=== PATIENT | female | born 1960 | race Caucasian/White ===

== ENCOUNTER 2017-04-25 20:54 | Emergency (ER) | payer OTHER ==
[~2017-04-25] VITALS: Ht 157.5 cm; Wt 68.0 kg
[2017-04-25] MEDS ORDERED: IBUPROFEN 400 MG TABLET PO ONE (21:30)
[2017-04-25] MEDS ORDERED: ONDANSETRON ODT 4 MG TAB.RAPDIS SL ONE (21:30)
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
[2017-04-25] MEDS ORDERED: ONDANSETRON ODT 4 MG TAB.RAPDIS ONE (21:43)
[2017-04-25] MEDS ORDERED: IBUPROFEN 400 MG TABLET ONE (21:43)
[2017-04-25] MEDS ORDERED: IV NORMAL SALINE 1000 ML BAG IV ONE (22:45)
--- NOTE | 2017-04-25 23:24 | NUR ---
removed IV 20g left AC, intact, site okay, bandaged. Pt had pain at site, restarted IV 20g right AC.
[2017-04-25 23:57] LABS: BASOPHILS # (AUTO) 0.1 K/uL (0.0-8.0); BASOPHILS % (AUTO) 0.6 % (0.0-2.0); EOSINOPHILS # (AUTO) 0.1 K/uL (0.0-0.7); EOSINOPHILS % (AUTO) 1.1 % (0.0-7.0); HEMATOCRIT 42.4 % (37-47); HEMOGLOBIN 14.7 G/DL (12.0-16.0); LYMPHOCYTES % (AUTO) 21.6 % (20.5-51.5); MEAN CORPUSCULAR HEMOGLOBIN 28.9 UUG (27.0-31.0); MEAN CORPUSCULAR HGB CONC 35 g/dL (32.0-37.0); MEAN CORPUSCULAR VOLUME 83.5 FL (81.0-99.0); MONOCYTES # (AUTO) 0.6 K/UL (0.1-1.30); MONOCYTES % (AUTO) 6.3 % (0.0-11.0); NEUTROPHILS # (AUTO) 6.5 K/UL (1.8-8.9); NEUTROPHILS % (AUTO) 70.4 % (38.5-71.5); PLATELET COUNT (AUTO) 338 K/UL (150-450); RED BLOOD CELL COUNT(AUTO) 5.08 MIL/UL (4.2-5.4); WHITE BLOOD COUNT (AUTO) 9.3 K/UL (4.0-11.2)
[2017-04-26] LABS: AMYLASE 45 U/L (25-115); LIPASE 206 U/L (73-393)
[2017-04-26 00:05] LABS: BILIRUBIN,DIRECT 0.1 mg/dL (0.0-0.2); BILIRUBIN,TOTAL 0.7 mg/dL (0.2-1.0); CREATININE 0.9 mg/dL (0.6-1.3); POTASSIUM 3.8 mmol/L (3.5-5.1); TOTAL PROTEIN, SERUM 7.8 g/dL (6.4-8.2)
--- NOTE | 2017-04-26 00:58 | NUR ---
Pt to CT
[2017-04-26] MEDS ORDERED: LORAZEPAM 2 MG/1 ML VIAL IV ONE (01:00)
[2017-04-26] MEDS ORDERED: LORAZEPAM 2 MG/1 ML VIAL ONE (01:08)
[2017-04-26] MEDS ORDERED: IOHEXOL 300MG/ML 100 ML INFUS..BTL ONE (01:15)
[2017-04-26] MEDS ORDERED: IV NORMAL SALINE 250 ML IV ONE (01:15)
--- NOTE | 2017-04-26 02:44 | NUR ---
IV removed intact, site okay, bandaged. Gave pt RX and d/c instructions, verbalized understanding.
[2017-04-26 02:49] VITALS: BP 157/92
== END 2017-04-26 02:50 | disposition home or self-care (01) ==
LOC: ER 20:55
DX: S39.012A Strain of muscle, fascia and tendon of lower back, initial encounter (principal); R10.9 Unspecified abdominal pain; M47.9 Spondylosis, unspecified; N83.201 Unspecified ovarian cyst, right side; S29.012A Strain of muscle and tendon of back wall of thorax, initial encounter; X58.XXXA Exposure to other specified factors, initial encounter; Y93.89 Activity, other specified; Y99.8 Other external cause status; Y92.89 Other specified places as the place of occurrence of the external cause
CPT/HCPCS: 36415 ×2; 72072; 72110; 74177; 80048; 80076; 82150; 83605; 83690; 85025; 85730; 96361; 96374; 99285; A4663; J2060; J7030; J7050; Q0162; Q9967